=== PATIENT | female | born 1980 | race Caucasian/White ===

== ENCOUNTER 2024-09-11 14:44 | Emergency (ER) | payer MEDICAID, SELFPAY ==
[2024-09-11 15:00] VITALS: BP 218/99; PULSE 93; TEMP 36.7; O2SAT 100; BMI 29.8
--- NOTE | 2024-09-11 15:23 | ED.GENADUL1 ---
HPI HPI - General Adult General Chief complaint: Nausea/Vomiting/Diarrhea Stated complaint: VOMITING Time Seen by Provider: 09/11/24 14:54 Source: patient Mode of arrival: Wheelchair History of Present Illness HPI narrative: 43-year-old female presents for nausea and vomiting. She states this time it has been going on for a week. She has a history of a colostomy because of necrotizing fasciitis many years ago and she states she will have it the rest of her life. She has an extensive history of nausea and vomiting and was seeing physicians in [place] but she moved away from there to get away from the situation. 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 She was seen at another hospital's emergency department earlier today. Related Data Home Medications ?Medication ?Instructions ?Recorded ?Confirmed acetaminophen 325 mg tablet 650 mg PO Q6H PRN pain 09/11/24 09/11/24 acetaminophen 500 mg tablet 500 mg PO Q6H PRN mild pain (scale 09/11/24 09/11/24 score 1-4) amoxicillin 875 mg-potassium 1 tab PO Q12H 09/11/24 09/11/24 clavulanate 125 mg tablet blood-glucose sensor ([employer] G7 09/11/24 09/11/24 Sensor device) dapagliflozin propanediol 5 mg 5 mg PO DAILY 09/11/24 09/11/24 tablet (Farxiga) duloxetine 30 mg capsule,delayed 30 mg PO BID 09/11/24 09/11/24 release gabapentin 400 mg capsule 800 mg PO TID 09/11/24 09/11/24 ipratropium 20 mcg-albuterol 100 1 puff inhalation QID 09/11/24 09/11/24 mcg/actuation mist for inhalation (Combivent Respimat) lidocaine 5 % topical patch 1 patch topical QAM 09/11/24 09/11/24 losartan 25 mg tablet 25 mg PO DAILY 09/11/24 09/11/24 magnesium oxide 400 mg PO QAM 09/11/24 09/11/24 melatonin 5 mg tablet 5 mg PO .QHS 09/11/24 09/11/24 ondansetron 4 mg disintegrating 4 mg PO Q8H PRN nausea and vomiting 09/11/24 09/11/24 tablet pantoprazole 40 mg tablet,delayed 40 mg PO DAILY 09/11/24 09/11/24 release potassium chloride 20 mEq oral 20 meq PO BID 09/11/24 09/11/24 packet Previous Rx's ?Medication ?Instructions ?Recorded dicyclomine 10 mg capsule 10 mg PO QID PRN abdominal pain 09/11/24 #20 caps ondansetron 4 mg disintegrating 4 mg PO Q6H PRN nausea and 09/11/24 tablet vomiting #20 tabs Allergies Allergy/AdvReac Type Severity Reaction Status Date / Time codeine Allergy Vomiting Verified 09/11/24 15:00 morphine Allergy Anaphylaxis Verified 09/11/24 15:00 Opioid HPI Opioid Management Most Recent Opioid Data: Last MAY Pain Assessment Today, 16:28 Review of Systems ROS Narrative A ten point review of systems is negative except as noted above. PFSH PFSH Social History Little interest or pleasure in doing things: nearly every day Feeling down, depressed, or hopeless: more than half the days Exam Narrative Exam Narrative: Nurses note and vital signs reviewed and patient is not hypoxic. General: The patient appears disheveled. She is in no respiratory distress Skin: Warm, dry, no pallor noted. There is no rash noted. Head: Normocephalic, atraumatic Eye: Normal conjunctiva, no drainage Ears, Nose, Mouth, and Throat: oral mucosa is moist. Nares patent. Cardiovascular: Regular Rate and Rhythm Respiratory: Patient is in no distress, no accessory muscle use, lungs are clear to auscultation, no wheezing, rales or rhonchi Back: non-tender GI: Colostomy in place. No distention. Musculoskeletal: The patient has no evidence of calf tenderness, no pitting edema, symmetrical pulses noted bilaterally Neurological: A&O, normal speech Psychiatric: Cooperative Constitutional Vital Signs, click to edit/add: Last Vital Signs Temp 98.0 F 09/11/24 15:00 Pulse 93 H 09/11/24 15:00 Resp 18 09/11/24 15:00 BP 218/99 H 09/11/24 15:00 Pulse Ox 100 09/11/24 15:00 O2 Del Method Room Air 09/11/24 15:00 Course Vital Signs Vital signs: Vital Signs Temperature 98.0 F 09/11/24 15:00 Pulse Rate 93 H 09/11/24 15:00 Respiratory Rate 18 09/11/24 15:00 Blood Pressure 218/99 H 09/11/24 15:00 Pulse Oximetry 100 09/11/24 15:00 Oxygen Delivery Method Room Air 09/11/24 15:00 Temperature 98.0 F 09/11/24 15:00 Pulse Rate 93 H 09/11/24 15:00 Respiratory Rate 18 09/11/24 15:00 Blood Pressure 218/99 H 09/11/24 15:00 Pulse Oximetry 100 09/11/24 15:00 Oxygen Delivery Method Room Air 09/11/24 15:00 Medical Decision Making MDM Narrative Medical decision making narrative: The patient was seen earlier today at another hospital and had a CAT scan at that same hospital on September 06 which was negative. Her blood work today is essentially negative and there is no indication for admission to the hospital. Treatment diagnosis and follow-up were discussed with the patient. Differential Diagnosis Differential Diagnosis: Cannabinoid hyperemesis, dehydration, electrolyte imbalance Medical Records Medical records reviewed: Yes I reviewed the patient's medical records Lab Data Lab results reviewed: Yes I reviewed the patient's lab results Labs: Lab Results 09/11/24 09/11/24 Range/Units 15:40 15:47 WBC 12.1 H (4.0-11.0) 10^3/uL RBC 4.38 (4.20-5.40) 10^6/uL Hgb 12.9 (12.0-16.0) g/dL Hct 37.2 (36.0-48.0) % MCV 84.9 (81.0-99.0) fL MCH 29.5 (26.7-34.0) pg MCHC 34.7 (29.9-35.2) g/dL RDW 12.6 (11.0-15.0) % Plt Count 313 (150-450) 10^3/uL MPV 10.4 (9.5-13.5) fL Neut % (Auto) 80.6 H (43.0-75.0) % Lymph % (Auto) 14.9 L (20.5-60.0) % Hays % (Auto) 3.1 (1.7-12.0) % Eos % (Auto) 0.5 L (0.9-7.0) % Baso % (Auto) 0.6 (0.2-2.0) % Neut # (Auto) 9.8 H (1.4-6.5) 10^3/uL Lymph # (Auto) 1.8 (1.2-3.8) 10^3/uL Hays # (Auto) 0.4 (0.3-0.8) 10^3/uL Eos # (Auto) 0.1 (0.0-0.7) 10^3/uL Baso # (Auto) 0.1 (0.0-0.1) 10^3/uL Abs Immat Gran (auto) 0.04 H (0.00-0.03) 10^3/uL Imm/Tot Granulo (auto) 0.3 (0.0-0.5) % Sodium 140 (136-145) mmol/L Potassium 3.3 L (3.5-5.1) mmol/L Chloride 104 (98-107) mmol/L Carbon Dioxide 15.2 L (21.0-32.0) mmol/L Anion Gap 24.1 BUN 20.0 H (7.0-18.0) mg/dL Creatinine 1.63 H (0.55-1.02) mg/dL Est GFR ( Amer) 42 L (>=60 mL/min/1.73m^2) Est GFR (Non-Af Amer) 35 L (>=60 mL/min/1.73m^2) BUN/Creatinine Ratio 12.3 Glucose 279 H (74-106) mg/dL Calcium 10.0 (8.5-10.1) mg/dL Total Bilirubin 0.5 (0.2-1.0) mg/dL Direct Bilirubin 0.1 (0.0-0.2) mg/dL AST 15 (15-37) U/L ALT 22 (14-59) U/L Alkaline Phosphatase 76 (46-116) U/L Total Protein 7.8 (6.4-8.2) g/dL Albumin 3.8 (3.4-5.0) g/dL Globulin 4.0 g/dL Albumin/Globulin Ratio 0.9 Amylase 41 (25-115) U/L Lipase 32.0 (16.0-77.0) U/L Urine Color Lt. yellow (YELLOW) Urine Clarity Clear (CLEAR) Urine pH 6.5 (5.0-9.0) Ur Specific [place] 1.020 (1.005-1.025) Urine Protein >=300 A (NEG/TRACE) mg/dL Urine Glucose (UA) 250 A (NEGATIVE) mg/dL Urine Ketones 15 A (NEGATIVE) mg/dL Urine Occult Blood Moderate A (NEGATIVE) Urine Nitrite Negative (NEGATIVE) Urine Bilirubin Negative (NEGATIVE) Urine Urobilinogen 0.2 (0.2-1.0) EU/dL Ur Leukocyte Esterase Negative (NEGATIVE) Urine RBC 10-20 A (0-2) #/HPF Urine WBC None seen (NONE SEEN) #/HPF Ur Squamous Epith Cells Few A (NONE/RARE) #/LPF Urine Crystals None seen (None Seen) #/HPF Urine Bacteria Trace A (NONE SEEN) #/HPF Urine Casts None seen (NONE SEEN) #/LPF Urine Mucus None seen (NONE SEEN) Ur Culture Indicated? No Discharge Plan Discharge Chief Complaint: Nausea/Vomiting/Diarrhea Clinical Impression: Nausea & vomiting, Poor social situation, Cannabinoid hyperemesis syndrome Patient Disposition: Home, Self-Care Time of Disposition Decision: 16:40 Condition: Good Prescriptions / Home Meds: New dicyclomine 10 mg capsule 10 mg PO QID PRN (Reason: abdominal pain) Qty: 20 0RF ondansetron 4 mg tablet,disintegrating 4 mg PO Q6H PRN (Reason: nausea and vomiting) Qty: 20 0RF No Action acetaminophen 325 mg tablet 650 mg PO Q6H PRN (Reason: pain) Rx Instructions: FILLED 09/06/24 FOR 7 DAYS gabapentin 400 mg capsule 800 mg PO TID acetaminophen 500 mg tablet 500 mg PO Q6H PRN (Reason: mild pain (scale score 1-4)) potassium chloride 20 mEq packet 20 meq PO BID pantoprazole 40 mg tablet,delayed release (DR/EC) 40 mg PO DAILY lidocaine 5 % adhesive patch,medicated 1 patch topical QAM losartan 25 mg tablet 25 mg PO DAILY ondansetron 4 mg tablet,disintegrating 4 mg PO Q8H PRN (Reason: nausea and vomiting) amoxicillin-pot clavulanate 875-125 mg tablet 1 tab PO Q12H Rx Instructions: 09/06/24-6/18/25 duloxetine 30 mg capsule,delayed release(DR/EC) 30 mg PO BID melatonin 5 mg tablet 5 mg PO .QHS (DME) Dexcom G7 Sensor Device MISCELLANEOUS dapagliflozin propanediol [Farxiga] 5 mg tablet 5 mg PO DAILY Combivent Respimat 20-100 mcg/actuation mist 1 puff INHALATION QID magnesium oxide 400 mg magnesium tablet 400 mg PO QAM Print Language: New Zealander Instructions: Acute Nausea and Vomiting (ED), Cannabis Use Disorder (ED) Referrals: Physician,Non-Staff, MD [Primary Care Provider] - 1 week
[2024-09-11] MEDS: 0.9 % SODIUM CHLORIDE 1,000 ML 1000 ML IV (15:36)
[2024-09-11] MEDS: ONDANSETRON PF 4 MG/2 ML VIAL IV (15:40)
[2024-09-11 15:59] LABS: Basophils Absolute Auto 0.1 10^3/uL (0.0-0.1); Basophils Percent Auto 0.6 % (0.2-2.0); Eosinophils Absolute Auto 0.1 10^3/uL (0.0-0.7); Eosinophils Percent Auto 0.5 % (0.9-7.0); Hematocrit 37.2 % (36.0-48.0); Hemoglobin 12.9 g/dL (12.0-16.0); Immature Granulocytes Abs Auto 0.04 10^3/uL (0.00-0.03); Immature Granulocytes Pct Auto 0.3 % (0.0-0.5); Lymphocytes Absolute Auto 1.8 10^3/uL (1.2-3.8); Lymphocytes Percent Auto 14.9 % (20.5-60.0); Mean Corpuscular HGB Conc 34.7 g/dL (29.9-35.2); Mean Corpuscular Hemoglobin 29.5 pg (26.7-34.0); Mean Corpuscular Volume 84.9 fL (81.0-99.0); Mean Platelet Volume 10.4 fL (9.5-13.5); Monocytes Absolute Auto 0.4 10^3/uL (0.3-0.8); Monocytes Percent Auto 3.1 % (1.7-12.0); Neutrophils Absolute Auto 9.8 10^3/uL (1.4-6.5); Neutrophils Percent Auto 80.6 % (43.0-75.0); Platelet Count 313 10^3/uL (150-450); Red Blood Count 4.38 10^6/uL (4.20-5.40); Red Cell Distribution Width 12.6 % (11.0-15.0); White Blood Count 12.1 10^3/uL (4.0-11.0)
[2024-09-11 15:59] LABS: Bilirubin Urine NEGATIVE (NEGATIVE); Blood Urine MODERATE (NEGATIVE); Clarity Urine CLEAR (CLEAR); Color Urine LT. YELLOW (YELLOW); Glucose Urine UA 250 mg/dL (NEGATIVE); Ketones Urine 15 mg/dL (NEGATIVE); Leukocyte Esterase Urine NEGATIVE (NEGATIVE); Nitrite Urine NEGATIVE (NEGATIVE); Protein Urine >=300 mg/dL (NEG/TRACE); Urobilinogen Urine 0.2 EU/dL (0.2-1.0); pH Urine 6.5 (5.0-9.0)
[2024-09-11 16:13] LABS: Bacteria Urine TRACE #/HPF (NONE SEEN); Cast Seen? NONE SEEN #/LPF (NONE SEEN); Crystals Seen? None Seen #/HPF (None Seen); Mucus Urine NONE SEEN (NONE SEEN); Squamous Epithelial Cell Urine FEW #/LPF (NONE/RARE); Urine Culture Indicated NO; WBC Urine NONE SEEN #/HPF (NONE SEEN)
[2024-09-11 16:18] LABS: Alanine Aminotransferase 22 U/L (14-59); Albumin Globulin Ratio 0.9; Albumin Level 3.8 g/dL (3.4-5.0); Alkaline Phosphatase 76 U/L (46-116); Amylase 41 U/L (25-115); Anion Gap 24.1; Aspartate Amino Transferase 15 U/L (15-37); BUN Creatinine Ratio 12.3; Bilirubin Direct 0.1 mg/dL (0.0-0.2); Bilirubin Total 0.5 mg/dL (0.2-1.0); Carbon Dioxide 15.2 mmol/L (21.0-32.0); Chloride 104 mmol/L (98-107); Estimated GFR (African America 42 (>=60 mL/min/1.73m^2); Estimated GFR (Non-African Ame 35 (>=60 mL/min/1.73m^2); Glucose 279 mg/dL (74-106); Potassium 3.3 mmol/L (3.5-5.1); Sodium 140 mmol/L (136-145); Total Protein 7.8 g/dL (6.4-8.2)
[2024-09-11] MEDS: KETOROLAC TROMETHAMINE 30 MG/ML VIAL IVP (16:28)
[2024-09-11 17:00] VITALS: BP 210/95; PULSE 80; O2SAT 98
== END 2024-09-11 17:33 | disposition home or self-care (01) ==
PROVIDERS: Emergency Provider Emergency Medicine
DX: R11.2 Nausea with vomiting, unspecified (principal); Z59.9 Problem related to housing and economic circumstances, unspecified; F12.188 Cannabis abuse with other cannabis-induced disorder
CPT/HCPCS: 36415; 80048; 80076; 81001; 82150; 83690; 85025; 96361; 96374; 96375; 99285; J1885; J2405